=== PATIENT | male | born 1955 | race Caucasian/White ===

== ENCOUNTER 2019-12-12 01:28 | Emergency (ER) | payer OTHER, SELFPAY ==
[2019-12-12] VITALS (7 sets, daily range): BP systolic 154–203; BP diastolic 73–90; PULSE 69–75; RESP 15–18; O2SAT 93–96
--- NOTE | ~2019-12-12 | XR_ITS ---
EXAMINATION: XR chest 2V DATE: 12/12/2019 01:58 INDICATION: Midsternal chest pain. Shortness of breath. TECHNIQUE: PA and lateral views of the chest were obtained. COMPARISON: Chest radiograph dated 09/18/[address] abdomen and pelvis dated 07/26/2014 FINDINGS: Opacity medial right lower lung zone and at the left costophrenic angle corresponding to bilateral pe ricardial fat pads. No other airspace opacities, pulmonary edema, pleural effusion or pneumothorax. C ardiomegaly. There are bridging osteophytes at multiple levels in the spine, consistent with diffuse idiopathic skeletal hyperostosis (DISH). IMPRESSION: 1. Cardiomegaly. Reviewed, dictated and finalized at location A. IMPRESSION: 1. Cardiomegaly.
--- NOTE | 2019-12-12 01:36 | ECG_ITS ---
Measurements Intervals [place] Rate: 70 P: 33 MN: 166 QRS: -14 QRSD: 120 T: 48 QT: 414 QTc: 447 Interpretive Statements SINUS RHYTHM INTRAVENTRICULAR CONDUCTION DELAY DELAYED PRECORDIAL R/S TRANSITION BASELINE WANDER- V5 BORDERLINE ECG Electronically Signed On 12-12-2019 7:06:14 CDT by Leonard Phan D.O.
[2019-12-12 01:54] LABS: Basophils Absolute Auto 0.1 K/mm3 (0.0-0.1); Basophils Percent Auto 0.4 % (0.2-1.2); Eosinophils Absolute Auto 0.4 K/mm3 (0-0.3); Eosinophils Percent Auto 3.2 % (0-4.4); Hematocrit 43.8 % (42.0-52.0); Hemoglobin 14.7 g/dL (14.0-18.0); Immature Granulocyte Absolute 0.04 K/mm3 (0.00-0.031); Immature Granulocyte Percent A 0.3 % (0-0.5); Lymphocytes Absolute Auto 1.77 K/mm3 (0.9-3.2); Lymphocytes Percent Auto 14.4 % (18.3-44.2); Mean Corpuscular HGB Conc 33.6 g/dl (32-36); Mean Corpuscular Hemoglobin 28.8 pg (26-34); Mean Corpuscular Volume 85.7 fl (80-100); Mean Platelet Volume 9.6 fl (7.4-10.4); Monocytes Percent Auto 7.8 % (2.6-8.5); Neutrophils Percent Auto 73.9 % (45.5-73.1); Platelet Count Result 301 k/mm3 (150-375); Red Blood Count 5.11 M/mm3 (4.6-6.20); Red Cell Distribution Width 13.2 % (11.5-14.5); White Blood Count 12.3 K/mm3 (4.5-10.0)
--- NOTE | 2019-12-12 02:16 | ED.CHESTPAIN ---
HPI - Chest Pain General Chief Complaint: Chest Pain Stated Complaint: Chest pressure Time Seen by Provider: 12/12/19 02:06 History of Present Illness HPI narrative: Patient presents with his daughter for chest pain since midnight. He gave a 8 out of 10. He usually takes aspirin 325 every day. He was given the aspirin here. The chest pain has resolved. He has shortness of breath. He has not had any cough fever cold chills or sweats. He has not been sick. He has had a history of heart attack in the past. He has hypertension and type 2 diabetes. Surgeries include inguinal hernias, and sinus surgery. Does not smoke cigarettes, rarely drinks alcohol, does not do drug. MD complaint: chest pain Pertinent past history: coronary artery disease Onset (ago): hour(s) Timing of current episode: now resolved Prior episodes: Yes Onset: during rest Pain location: substernal and left chest Pain radiation: none Severity: severe Relieving factors: other (Aspirin) Associated symptoms: dyspnea Related Data Home Medications Medication Instructions Recorded Confirmed atorvastatin 80 mg PO DAILY 12/12/19 12/12/19 carvedilol 12.5 mg PO DAILY 12/12/19 12/12/19 lisinopril 10 mg PO DAILY 12/12/19 12/12/19 metformin 1,000 mg PO BID 12/12/19 12/12/19 Allergies Allergy/AdvReac Type Severity Reaction Status Date / Time No Known Allergies Allergy Verified 12/12/19 01:36 Review of Systems Review of Systems: Narrative: CONSTITUTIONAL: Denies fever, chills, or sweats. EYES: Denies visual changes, redness, or discharge. ENT: Denies rhinorrhea, congestion, sore throat, or otalgia. CARDIOVASCULAR: He had chest pain, but not palpitations, or edema. RESPIRATORY: Denies cough or dyspnea. GASTROINTESTINAL: Denies abdominal pain, nausea, vomiting, or diarrhea. GENITOURINARY: Denies dysuria or hematuria. SKIN: Denies rash or itching. MUSCULOSKELETAL: Denies back pain, joint pain, or myalgia. NEUROLOGIC: Denies headache, numbness, or weakness. All systems reviewed & are unremarkable except as noted in HPI and below PMFSH Past Medical History Medical History History of myocardial infarction Surgical History Surgical History History of inguinal hernia repair History of sinus surgery Social History Social History (Updated 12/12/19 @ 02:19 by Tyra Alvarez MD) Smoking status: Never smoker Alcohol intake: current Substance use: never Exam Narrative: Exam Narrative: GENERAL: Well-appearing, well-nourished, and in no acute distress. Morbid obesity. Laying with only his underpants on. HEAD: Normocephalic, atraumatic. EYES: PERRLA and EOMI. ENT: Nares clear, no rhinorrhea or epistaxis. Mucous membranes moist. NECK: Supple. CHEST: Clear to auscultation. No respiratory distress. HEART: Regular rate and rhythm. No murmur heard. Normal peripheral pulses. ABDOMEN: Soft, nontender, nondistended, normal active bowel sounds. EXTREMITIES: Normal range of motion. No edema. SKIN: Warm, dry, no rash. Large pedunculated mole on his back NEURO: No focal deficits. Alert and oriented x3. PSYCH: Normal mood and affect. Const: General: no acute distress and alert Orientation/consciousness: patient oriented x3 Course Reevaluation(s) Reevaluation #1: Stopped in to tell the patient that his blood pressure is better after the Lopressor and Lasix. He said it usually runs about 140. 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
[2019-12-12] MEDS: FUROSEMIDE INJ 40 MG/4 ML VIAL IV PUSH (02:48)
[2019-12-12 03:11] LABS: Lactic Acid Reflex 2.1 mmol/L (0.7-2.1)
[2019-12-12 03:11] LABS: Anion Gap 9 mmol/L (8-16); Blood Urea Nitrogen 14 mg/dL (9-20); Calcium 9.1 mg/dL (8.4-10.2); Carbon Dioxide 27 mmol/L (22-30); Chloride 103 mmol/L (98-107); Estimated Glomerular Filt Rate > 60; Glucose 221 mg/dL (75-110); Potassium 4.2 mmol/L (3.4-5.0); Sodium 139 mmol/L (137-145)
[2019-12-12 03:16] LABS: Prothrombin Time 12.4 Seconds (11.1-14.7)
[2019-12-12 03:17] LABS: Partial Thromboplastin Time 29.2 SECONDS (22.3-36.8)
[2019-12-12 03:22] LABS: Troponin I < 0.012 ng/mL (0.000-0.034)
[2019-12-12] MEDS: METOPROLOL TARTRATE INJ 5 MG/5 ML VIAL IV PUSH (03:30)
[2019-12-12 03:39] LABS: NT Pro B Type Natriuretic Pept 96 PG/ML (5-100)
[2019-12-12 05:57] LABS: Reflex Lactic Acid Yes or No Add Lactic
== END 2019-12-12 05:25 | disposition home or self-care (01) ==
PROVIDERS: Emergency Provider Emergency Medicine; PCP Family Medicine
DX: J18.9 Pneumonia, unspecified organism (principal); I16.9 Hypertensive crisis, unspecified; Z79.82 Long term (current) use of aspirin; I25.2 Old myocardial infarction; I25.10 Atherosclerotic heart disease of native coronary artery without angina pectoris; Z79.84 Long term (current) use of oral hypoglycemic drugs; I45.9 Conduction disorder, unspecified; R94.31 Abnormal electrocardiogram [ECG] [EKG]
CPT/HCPCS: 36415; 71046; 80048; 83605; 83880; 84484; 85025; 85610; 85730; 87040; 93005; 96365; 96367; 96375; 99284; J0456; J0696; J1940

== ENCOUNTER 2020-09-23 00:44 | Emergency (ER) | payer OTHER, SELFPAY ==
[2020-09-23 00:55] VITALS: BP 128/67; PULSE 73; RESP 16; TEMP 36.4; O2SAT 96
--- NOTE | 2020-09-23 02:03 | ED.GENADULT ---
HPI - General Adult General Chief complaint: Unspecified Stated complaint: testicle node Time Seen by Provider: 09/23/20 01:50 History of Present Illness HPI narrative: 65 yo male w/ h/o DM presents to the ED for a lump between his testicles. He first noticed it a few days ago and at that time it was the size of a pea. It is now the size of his testicles and very tender. He has no testicle pain, hematuria, dysuria, injury, fever. Related Data Home Medications Medication Instructions Recorded Confirmed atorvastatin 80 mg PO DAILY 12/12/19 12/12/19 carvedilol 12.5 mg PO DAILY 12/12/19 12/12/19 lisinopril 10 mg PO DAILY 12/12/19 12/12/19 metformin 1,000 mg PO BID 12/12/19 12/12/19 Allergies Allergy/AdvReac Type Severity Reaction Status Date / Time No Known Allergies Allergy Verified 12/12/19 01:36 Review of Systems Review of Systems: All systems reviewed & are unremarkable except as noted in HPI and below Constitutional: Constitutional: Denies fever(s) Cardiovascular: Cardiovascular: Denies chest pain Respiratory: Respiratory: Denies dyspnea Gastrointestinal: Gastrointestinal: Denies abdominal pain, Denies diarrhea, Denies nausea and Denies vomiting Genitourinary: Genitourinary: Denies hematuria, Denies dysuria, Denies flank pain, Denies penile discharge, Denies testicular pain and Denies urinary frequency Musculoskeletal: Musculoskeletal: Reports no additional musculoskeletal complaints Neurologic: Reports system reviewed and no additional complaints, except as documented [facility] Past Medical History Medical History (Updated 09/25/20 @ 19:56 by Grover Valadze MD) Diabetes mellitus History of myocardial infarction Surgical History Surgical History History of inguinal hernia repair History of sinus surgery Social History Social History (Updated 12/12/19 @ 02:19 by Tyra Alvarez MD) Smoking status: Never smoker Alcohol intake: current Substance use: never Exam Const: General: cooperative, comfortable and no acute distress Nutritional Appearance: obese Orientation/consciousness: patient oriented x3 HENMT: Head: normal to inspection Neck: Neck: normal visual inspection Resp: Effort & Inspection: normal respiratory effort Auscultation: clear to auscultation bilaterally Cardio: Rate: regular rate GI: Inspection: non-distended and obesity GI Palp: No Tenderness to palpation present (GI) : Penis: Yes normal penis and Yes circumcised Scrotum: erythematous localized and scrotal mass (fluctuant mass affixed to scroatal wall with small scab overlying) Testes: Testes normal Skin: General skin exam: normal color Neuro: General: patient oriented x3, gait normal and no focal motor deficits Extrem: General: normal to inspection Course Vital Signs Vital signs: Vital Signs Temperature 36.4 C 09/23/20 00:55 Pulse Rate 73 09/23/20 00:55 Respiratory Rate 16 09/23/20 00:55 Blood Pressure 128/67 09/23/20 00:55 Pulse Oximetry 96 09/23/20 00:55 Temperature 36.4 C 09/23/20 00:55 Pulse Rate 74 09/23/20 04:21 Respiratory Rate 20 09/23/20 04:21 Blood Pressure 124/63 09/23/20 04:21 Pulse Oximetry 97 09/23/20 04:21 Procedures Abscess I/D scrotum: Local Anesthetic: lidocaine 1% Amount of anesthesia used (mL): 4 Technique: incised with #11 blade Amount of fluid expressed (mL): 1 Irrigation: Yes Packing used?: iodoform I&D Results: Pus Medical Decision Making MDM Narrative Medical decision making narrative: No scrotal ultrasound avaialble at this time. exam consistent with scrotal wall abscess. On I&D scant pus obtained. may have already drained on its own given overlying scab. It did have a rather thick wall around it raising concern that it may have been something more chronic. I will have him follow up with urology for wound check and possibly fu
[2020-09-23] MEDS: CLINDAMYCIN HCL 150 MG CAP 300 MG PO (02:06)
[2020-09-23 04:21] VITALS: BP 124/63; PULSE 74; RESP 20; O2SAT 97
== END 2020-09-23 04:23 | disposition home or self-care (01) ==
PROVIDERS: Emergency Provider Emergency Medicine; PCP Family Medicine
DX: N49.2 Inflammatory disorders of scrotum (principal)
CPT/HCPCS: 55100; 99283; A9270

== ENCOUNTER 2022-10-17 09:42 | Observation (INO) | payer OTHER, SELFPAY ==
[2022-10-17] VITALS (12 sets, daily range): BP systolic 129–177; BP diastolic 57–85; PULSE 65–87; RESP 15–22; TEMP 36.4–37.1; O2SAT 94–98; BMI 40.8
--- NOTE | ~2022-10-17 | CT_ITS ---
EXAMINATION: CT brain wo con DATE: 10/17/2022 11:10 INDICATION: Headache TECHNIQUE: Computed tomography (CT) of the head was performed without intravenous contrast. The dose- length product was 756.67 mGy-cm. Automated exposure control and iterative reconstruction technique were employed. COMPARISON: None FINDINGS: Normal brain parenchymal volume for age. There are scattered mild periventricular and subco rtical white matter changes, most likely related to small vessel ischemic disease (microangiopathy). No ventriculomegaly or midline shift. Basilar cisterns are patent. Paranasal sinuses and mastoids are unremarkable. IMPRESSION: 1. No acute intracranial abnormality. Reviewed, dictated and finalized at location []
--- NOTE | ~2022-10-17 | CT_ITS ---
EXAMINATION: CT chest abdomen pelvis wo con DATE: 10/17/2022 11:17 CDT INDICATION: Abdominal pain and dyspnea TECHNIQUE: Computed tomography (CT) of the chest, abdomen, and pelvis was performed with 100 cc Omnip aque 350 intravenous contrast. The dose-length product was 1914.41 mGy-cm. Automated exposure control and iterative reconstruction technique were employed. COMPARISON: CT dated 07/26/2014 FINDINGS: CHEST CT: No significant pleural or pericardial effusion. Mild atherosclerosis of the aorta and coronary arteri es. Cardiomegaly. No thoracic lymphadenopathy. There is calcified granuloma near the right major fiss ure in the lower lobe. No endobronchial lesions. There are calcified granulomas in the right lung bas e. Shallow inspiration with crowding of the pulmonary vasculature. No endobronchial lesions. No pneum othorax. There are a few small pulmonary nodules which are not clearly calcified measuring 2 mm or le ss, likely benign. There is moderate spondylosis of the thoracic and lumbar spine. ABDOMEN/PELVIS CT: The liver, spleen, pancreas, adrenal glands and kidneys are unremarkable. Gallbladder is present. Mod erate colonic fecal loading. Mild atherosclerosis. No aneurysm. No lymphadenopathy. Nonobstructive jimi wel gas pattern. No free air or free fluid. Gallbladder is present. IMPRESSION: 1. No acute abnormality of the chest, abdomen or pelvis. Reviewed, dictated and finalized at location []
[2022-10-17 10:04] LABS: Glucose Point of Care 159 mg/dl (65-105)
--- NOTE | 2022-10-17 10:12 | ECG_ITS ---
Measurements Intervals [place] Rate: 80 P: 39 [place]: 170 QRS: -25 QRSD: 164 T: -12 QT: 424 QTc: 492 Interpretive Statements SINUS RHYTHM BORDERLINE LEFT AXIS DEVIATION [QRS AXIS < -20] RIGHT BUNDLE BRANCH BLOCK COMPARED TO ECG 12/12/2019 01:36:10 RIGHT BUNDLE BRANCH CONDUCTION IS NOW SEEN Electronically Signed On 10-17-2022 13:32:54 CDT by Geovany Jones M.D.
[2022-10-17 10:15] LABS: Basophils Percent Auto 0.3 % (0.2-1.2); Eosinophils Absolute Auto 0.2 K/mm3 (0-0.3); Eosinophils Percent Auto 1.2 % (0-4.4); Hemoglobin 15.2 g/dL (14.0-18.0); Immature Granulocyte Absolute 0.06 K/mm3 (0.00-0.031); Immature Granulocyte Percent A 0.4 % (0-0.5); Lymphocytes Absolute Auto 1.56 K/mm3 (0.9-3.2); Mean Corpuscular Hemoglobin 27.8 pg (26-34); Mean Corpuscular Volume 84.1 fl (80-100); Mean Platelet Volume 8.9 fl (7.4-10.4); Monocytes Absolute Auto 0.7 K/mm3 (0.1-0.6); Monocytes Percent Auto 4.9 % (2.6-8.5); Neutrophils Absolute Auto 11.6 K/mm3 (1.3-6.7); Neutrophils Percent Auto 82.2 % (45.5-73.1); Platelet Count Result 328 k/mm3 (150-375); Red Blood Count 5.47 M/mm3 (4.6-6.20); Red Cell Distribution Width 13.3 % (11.5-14.5); White Blood Count 14.2 K/mm3 (4.5-10.0)
--- NOTE | 2022-10-17 10:16 | ED.ABDPAIN ---
HPI - Abdominal Pain General Chief Complaint: Abdominal Pain <Katia Eagle PA-C - Last Filed: 10/17/22 18:23> Stated Complaint: HEADACHE,NAUSEA <Katia Eagle PA-C - Last Filed: 10/17/22 18:23> Time Seen by Provider: 10/17/22 09:57 <Katia Eagle PA-C - Last Filed: 10/17/22 18:23> History of Present Illness HPI narrative: 67 y/o M with a history of OR not requiring intervention, hypertension, CAD, type 2 diabetes reports for evaluation of sudden onset headache, abdominal pain and nausea x7 hours. Pt states the headache and abdominal pain woke him up in his sleep and was associated with cold sweats. Patient reports the headache was a 8-9/10 initially, but is now down to a 3/10 after he took Aleve ~3 hours ago. States his headache is behind his eyes. He describes the abdominal pain as tightness throughout his mid abdomen. Pt also reports shortness of breath that is mildly increased from his baseline, worse with laying flat. Denies chest pain, vision changes, focal numbness or weakness, difficulty talking or walking, vomiting or diarrhea, urinary complaints, dizziness or lightheadedness, syncope, cough or congestion, lower extremity edema, neck pain. Last BM 6 hours ago was normal. He sees Dr. Merrill with [facility] cardiology and Dr. Workman [facility] in [place], [place]. <YVES Gerard Last Filed: 10/17/22 18:23> Related Data Home Medications: Home Medications Medication Instructions Recorded Confirmed atorvastatin 80 mg tablet 80 mg PO HS 12/12/19 10/17/22 carvedilol 12.5 mg tablet 12.5 mg PO BID 12/12/19 10/17/22 lisinopril 10 mg tablet 10 mg PO HS 12/12/19 10/17/22 metformin 500 mg tablet 1,000 mg PO BID 12/12/19 10/17/22 dulaglutide 4.5 mg/0.5 mL 4.5 mg subcut WEEKLY 10/17/22 10/17/22 subcutaneous pen injector (Trulicity) <YVES Gerard Last Filed: 10/17/22 18:23> Allergies/Adverse Reactions: Allergies Allergy/AdvReac Type Severity Reaction Status Date / Time No Known Allergies Allergy Verified 10/17/22 09:56 <Katia Eagle PA-C - Last Filed: 10/17/22 18:23> Review of Systems Review of Systems: CONSTITUTIONAL: Denies fever, chills EYES: Denies visual changes, redness, or discharge. ENT: Denies rhinorrhea, congestion, sore throat, or otalgia. CARDIOVASCULAR: Denies chest pain, palpitations, or edema. RESPIRATORY: See HPI GASTROINTESTINAL: See HPI GENITOURINARY: Denies dysuria or hematuria. SKIN: Denies rash or itching. MUSCULOSKELETAL: Denies back pain, joint pain, or myalgia. NEUROLOGIC: See HPI PSYCHIATRIC: Denies anxiety or depression. <Katia Eagle PA-C - Last Filed: 10/17/22 18:23> [facility] Past Medical History Medical History: Medical History (Updated 10/17/22 @ 17:17 by Veronica Moses NP) Diabetes mellitus History of myocardial infarction Hyperlipidemia Hypertension MYKE on CPAP <Katia Eagle PA-C - Last Filed: 10/17/22 18:23> Surgical History Surgical History: Surgical History (Updated 10/17/22 @ 23:02 by Veronica Moses NP) H/O cardiac catheterization No intervention History of inguinal hernia repair History of sinus surgery Hx of total knee arthroplasty S/P tonsillectomy and adenoidectomy <Katia Eagle PA-C - Last Filed: 10/17/22 18:23> Family History Family History: Family History (Updated 10/17/22 @ 17:20 by Veronica Moses NP) Mother Heart disease Daughter Heart disease <Katia Eagle PA-C - Last Filed: 10/17/22 18:23> Social History Social History: Social History (Updated 10/17/22 @ 22:50 by Veronica Moses NP) Social History: He is and lives with his who is the durable power patent prosecution attorney. They have 3 children. He is retired from right to own. He is a lifelong nonsmoker. He does not use any alcohol marijuana or illicit drugs. Code status full code Smoking status: Never smoker Alcohol intake: current Drinks per
[2022-10-17] MEDS: ACETAMINOPHEN 500 MG TABLET 1000 MG PO (10:25)
[2022-10-17 10:26] LABS: Alanine Aminotransferase 39 U/L (6-50); Albumin Level 4.5 g/dL (3.5-5.1); Alkaline Phosphatase 69 U/L (38-126); Anion Gap 11 mmol/L (8-16); Aspartate Amino Transferase 38 U/L (17-59); Bilirubin,Total 0.8 mg/dL (0.2-1.3); Blood Urea Nitrogen 10 mg/dL (9-20); Calcium 9.4 mg/dL (8.4-10.2); Carbon Dioxide 28 mmol/L (22-30); Chloride 100 mmol/L (98-107); Estimated CRCL calculation 130 ml/min; Estimated Glomerular Filt Rate > 60; Glucose 162 mg/dL (65-110); Lipase 157 U/L (23-300); Potassium 4.5 mmol/L (3.4-5.0); Sodium 139 mmol/L (137-145)
[2022-10-17] MEDS: BELLADONNA ALK/PHENOB ELIX 10 ML, MAG HYDROX/ALUMINUM HYD/SIMETH 30 ML, LIDOCAINE HCL 2... PO (10:26)
[2022-10-17] MEDS: diphenhydrAMINE HCl INJ 50 MG/ML VIAL 25 MG IV PUSH (10:27)
[2022-10-17] MEDS: FAMOTIDINE 20 MG/2 ML VIAL IV PUSH (10:27)
[2022-10-17] MEDS: ONDANSETRON INJ 4 MG/2 ML VIAL IV PUSH (10:27)
[2022-10-17] MEDS: PROCHLORPERAZINE EDISYLATE 10 MG/2 ML VIAL IV PUSH (10:28)
[2022-10-17 10:44] LABS: Partial Thromboplastin Time 30.2 SECONDS (22.3-36.8); Prothrombin Time 13.4 Seconds (11.1-14.7)
[2022-10-17 10:52] LABS: NT Pro B Type Natriuretic Pept 410 pg/mL (19.9-100); Troponin I < 0.012 ng/mL (0.000-0.034)
[2022-10-17 11:44] LABS: Appearance Urine Clear (Clear); Bacteria Urine None Seen /hpf; Bilirubin Urine Negative (Negative); Blood Urine Negative (Negative); Color Urine Yellow (Yellow); Glucose Urine UA 2+ mg/dL (Negative); Ketones Urine Trace mg/dL (Negative); Leukocyte Esterase Ur Negative LEU/UL (Negative); Nitrate Urine Negative (Negative); Non Pathogenic Casts 0-2; Protein Urine 2+ mg/dL (Negative); RBC Urine 0-2 /hpf (0-2); Specific Grav Ur 1.013 (1.001-1.035); Squamous Epithelial Cell Urine None seen /hpf (Few); WBC Urine 0-5 /hpf; pH Urine 6.5 (5.0-9.0)
[2022-10-17 12:08] LABS: Add Urine Microscopic? YES
--- NOTE | 2022-10-17 14:10 | PC.NURSE ---
ambulated pt in hallway. o2 sat remained at 98% and pt reports no sob, cp or dizziness
[2022-10-17 14:13] LABS: D Dimer < 0.27 ug/mL (<0.48)
[2022-10-17 15:09] LABS: Troponin I < 0.012 ng/mL (0.000-0.034)
--- NOTE | 2022-10-17 17:15 | PM.IMHP ---
H&P: HPI History of Present Illness Date/Time: 10/17/22 17:15 Chief Complaint: Abdominal pain Narrative: This is a 67-year-old male patient who has history of hypertension and diabetes. The patient stated he had a sudden onset of a headache and abdominal pain and nausea for 7 hours. The patient stated that his headache and abdominal pain will came up from his sleep he also endorses cold sweats. The patient initially rated his headache 8-9 to 10 a leave prior to coming to the emergency room. The patient stated that he had headache behind his eyes. He had no change in his vision he had some shortness of breath. He denies any chest pain numbness or focal weakness. No edema. His white count was noted to be 14.2. Neutrophil percentage 82.2. His blood sugar was 162, 159 and 157. Troponins negative x2. The patient was given Zofran, Pepcid, GI cocktail, Compazine, Benadryl and Tylenol. Chest abdomen pelvis CT was read as no acute abnormality the chest abdomen or pelvis. Head CT was read as no acute intracranial abnormality. EKG was read asSINUS RHYTHM BORDERLINE LEFT AXIS DEVIATION? [QRS AXIS < -20] RIGHT BUNDLE BRANCH BLOCK COMPARED TO ECG 12/12/2019 01:36:10 RIGHT BUNDLE BRANCH CONDUCTION IS NOW SEEN Electronically Signed On 10-17-2022 13:32:54 CDT by Geovany Charles. The patient is being admitted to observation status on the date of service of 10/17/2022 Review of Systems Review of Systems: All systems reviewed & are unremarkable except as noted in HPI and below Constitutional: Constitutional: Reports as per HPI and Reports no additional constitutional complaints Eyes: Eyes: Reports as per HPI and Reports no additional eye complaints ENT: Reports system reviewed and no additional complaints, except as documented and Reports Normal hearing present Cardiovascular: Cardiovascular: Reports no additional cardiovascular complaints Respiratory: Respiratory: Reports no additional respiratory complaints and Reports no additional respiratory complaints Gastrointestinal: Gastrointestinal: Reports as per HPI and Reports no additional gastrointestinal complaints Musculoskeletal: Musculoskeletal: Reports no additional musculoskeletal complaints Integumentary/Breasts: Skin/Breast: Reports system reviewed and no additional complaints, except as docu and Reports as per HPI Neurologic: Reports system reviewed and no additional complaints, except as documented, Reports as per HPI and Reports Normal hearing present Psychiatric: Psychiatric: Reports no additional psychiatric complaints and Reports as per HPI Endocrine: Endocrine: Reports no additional endocrine complaints Hematologic/Lymphatic: Hematologic/Lymphatic: Reports no additional hematologic/lymphatic complaints Allergic/Immunologic: Allergic/Immunologic: Reports no additional allergic/immunologic complaints [facility] Past Medical History Medical History (Updated 10/17/22 @ 17:17 by Veronica Moses NP) Diabetes mellitus History of myocardial infarction Hyperlipidemia Hypertension MYKE on CPAP Surgical History Surgical History (Updated 10/17/22 @ 23:02 by Veronica Moses NP) H/O cardiac catheterization No intervention History of inguinal hernia repair History of sinus surgery Hx of total knee arthroplasty S/P tonsillectomy and adenoidectomy Family History Family History (Updated 10/17/22 @ 17:20 by Veronica Moses NP) Mother Heart disease Daughter Heart disease Social History Social History (Updated 10/17/22 @ 22:50 by Veronica Moses NP) Social History: He is and lives with his who is the durable power workers compensation attorney. They have 3 children. He is retired from right to [employer]. He is a lifelong nonsmoker. He does not use any alcohol marijuana or illicit drugs. Code status full code Smoking status: Never smoker Alcohol intake: current Drinks per week: 0 Substance use: never Substance use type: does not use Lack of Transportation
[2022-10-17 17:54] LABS: Glucose Point of Care 103 mg/dl (65-105)
[2022-10-17 20:16] LABS: Glucose Point of Care 157 mg/dl (65-105)
--- NOTE | 2022-10-17 21:19 | ADMGEN ---
This patient, Jonathan Suárez, was admitted to IMU Room 207-01 on 10/17/22. Patient/family oriented to hospital policies and general routines including ID bracelet, bed and alarms, visiting hours, pain management, procedures, bathroom and other care routines, personal items, smoking policy, room service/diet, and visiting hours. Information on how to activate the Rapid Response Team has been discussed. Patient/Family are encouraged to report perceived risks to care and to ask questions if they do not understand what they are told or what they should do.
[2022-10-17] MEDS: ATORVASTATIN 40 MG TABLET 80 MG PO (23:38)
[2022-10-17] MEDS: carvediloL 12.5 MG TABLET PO (23:38)
[2022-10-17] MEDS: lisinopriL 10 MG TABLET PO (23:38)
[2022-10-17] MEDS: SODIUM CHLORIDE 0.9% IV 1,000 ML 100 ML IV CONT (23:39)
--- NOTE | 2022-10-17 23:41 | PCRCNOTE ---
pt does not wear home CPAP, or want one while here
[2022-10-18] VITALS (11 sets, daily range): BP systolic 129–171; BP diastolic 57–69; PULSE 65–97; RESP 16–20; TEMP 36.5–36.7; O2SAT 95–96
--- NOTE | 2022-10-18 | ECHO_ITS ---
Patient Info Name: Jonathan Suárez Age: 67 years : 1955 Gender: Male Ht: 72 in Wt: 301 lbs BSA: 2.69 m2 HR: 78 bpm BP: 165 / 67 mmHg Heart Rhythm: Sinus Rhythm Technical Quality: Poor Exam Date: 10/18/2022 8:58 AM Exam Location: [facility] Pulmonary Exam Room: 207 Patient Status: Inpatient Admit Date: 10/17/2022 Staff Ordering Physician: Veronica Moses NP Senior Communications Engineer: Rosalind Roman RDCS Attending Provider: Geovany Ortega MD Referring Physician: uArelia PADGETT; Exam Type: CA echo dop color flow w con Study Info Indications - dyspnea on exertion Complete two-dimensional, color flow and Doppler transthoracic echocardiogram is performed with contrast to opacify the left ventricle and to improve the deliniation of the left ventricle endocardial borders. Contrast/Agitated Saline Contrast/Ag. Saline: Definity Amount: 2.00 ml Administered By: Rosalind Roman [facility] Existing IV Access: Yes IV Access Condition: patent with no signs of infiltration Reason for Poor Study: patient body habitus Summary 1. Left ventricular chamber dimension is moderately enlarged. 2. Left ventricular systolic function is normal, estimated at 60-65%. 3. There is mildly increased left ventricular wall thickness. 4. The left ventricular diastolic function is grade I diastolic dysfunction. 5. Left atrial chamber dimension is mildly enlarged. 6. There is mild aortic valve calcification. Left Ventricle Left ventricular chamber dimension is moderately enlarged. Left ventricular systolic function is normal, estimated at 60-65%. There is mildly increased left ventricular wall thickness. The left ventricular diastolic function is grade I diastolic dysfunction. Right Ventricle Right ventricular chamber dimension is normal. Right ventricular systolic function is normal. Left Atria Left atrial chamber dimension is mildly enlarged. Right Atria Right atrial chamber dimension is normal. Atrial Septum Intact interatrial septum visualized by color flow imaging. Aortic Valve The aortic valve is trileaflet. There is no aortic valve stenosis. There is trace aortic valve regurgitation. There is mild aortic valve calcification. Pulmonic Valve The pulmonic valve is normal. There is no pulmonic valve stenosis. There is trace pulmonic regurgitation. Mitral Valve The mitral valve has normal leaflets. There is no mitral valve stenosis. There is trace mitral valve regurgitation. Tricuspid Valve The tricuspid valve leaflets are normal. There is no significant tricuspid valve stenosis. There is trace tricuspid valve regurgitation. Pericardium/Pleural The pericardium appears normal. There is trivial pericardial effusion. Inferior Vena Cava Normal inferior vena cava with <50% collapse upon inspiration consistent with elevated right atrial pressure, 10 mmHg. Aorta The aortic root size at the sinus of Valsalva is normal. Left Ventricular Outflow Tract Name Value Normal LVOT 2D LVOT Diameter 2.12 cm LVOT Doppler LVOT Peak Gradient 10 mmHg LVOT Mean Gradient 6 mmHg LVOT VTI
[2022-10-18 00:10] LABS: Troponin I < 0.012 ng/mL (0.000-0.034)
[2022-10-18 04:07] LABS: Basophils Percent Auto 0.3 % (0.2-1.2); Eosinophils Absolute Auto 0.2 K/mm3 (0-0.3); Eosinophils Percent Auto 1.2 % (0-4.4); Hemoglobin 14.2 g/dL (14.0-18.0); Immature Granulocyte Absolute 0.05 K/mm3 (0.00-0.031); Immature Granulocyte Percent A 0.4 % (0-0.5); Lymphocytes Absolute Auto 1.49 K/mm3 (0.9-3.2); Lymphocytes Percent Auto 11.3 % (18.3-44.2); Mean Corpuscular HGB Conc 32.3 g/dl (32-36); Mean Corpuscular Hemoglobin 27.6 pg (26-34); Mean Corpuscular Volume 85.6 fl (80-100); Mean Platelet Volume 9.2 fl (7.4-10.4); Monocytes Absolute Auto 0.9 K/mm3 (0.1-0.6); Monocytes Percent Auto 6.9 % (2.6-8.5); Neutrophils Absolute Auto 10.5 K/mm3 (1.3-6.7); Neutrophils Percent Auto 79.9 % (45.5-73.1); Platelet Count Result 302 k/mm3 (150-375); Red Blood Count 5.14 M/mm3 (4.6-6.20); Red Cell Distribution Width 13.3 % (11.5-14.5); White Blood Count 13.2 K/mm3 (4.5-10.0)
[2022-10-18 04:23] LABS: Lactic Acid Reflex 1.3 mmol/L (0.7-2.0)
[2022-10-18 04:24] LABS: Alanine Aminotransferase 36 U/L (6-50); Albumin Level 4.4 g/dL (3.5-5.1); Alkaline Phosphatase 64 U/L (38-126); Anion Gap 5 mmol/L (8-16); Aspartate Amino Transferase 33 U/L (17-59); Blood Urea Nitrogen 12 mg/dL (9-20); Calcium 8.9 mg/dL (8.4-10.2); Carbon Dioxide 33 mmol/L (22-30); Chloride 102 mmol/L (98-107); Estimated CRCL calculation 147 ml/min; Estimated Glomerular Filt Rate > 60; Glucose 132 mg/dL (65-110); Magnesium 2.2 mg/dL (1.6-2.3); Sodium 140 mmol/L (137-145)
[2022-10-18 06:49] LABS: Hemoglobin A1C 6.5 % (<5.7)
[2022-10-18 07:51] LABS: Glucose Point of Care 175 mg/dl (65-105)
[2022-10-18] MEDS: carvediloL 12.5 MG TABLET PO (08:15)
[2022-10-18] MEDS: ENOXAPARIN 40 MG/0.4 ML SYRINGE SUB-Q (08:15)
[2022-10-18] MEDS: PERFLUTREN LIPID MICROSPHERES 1.5 ML VIAL DILUTED TO 10 ML TOTAL VOLUME IV PUSH (09:30)
[2022-10-18] MEDS: SODIUM CHLORIDE 0.9% IV 1,000 ML 100 ML IV CONT (09:39)
[2022-10-18 11:36] LABS: Glucose Point of Care 146 mg/dl (65-105)
--- NOTE | 2022-10-18 14:26 | PM.DS ---
DS: Admitting Diagnosis Discharge Date 10/28/22 Admitting Diagnosis abdominal pain DS: Discharge Diagnosis Discharge Diagnosis (1) Orthopnea: Code(s): R06.01 - Orthopnea Status: Acute Assessment and Plan: Echo was ordered Chest/Abdomen/Pelvis CT 10/17/22 11:17 IMPRESSION: 1. No acute abnormality of the chest, abdomen or pelvis. He is on room air. (2) Hyperlipidemia: Code(s): E78.5 - Hyperlipidemia, unspecified Status: Acute Assessment and Plan: Continue with Lipitor (3) MYKE on CPAP: Code(s): G47.33 - Obstructive sleep apnea (adult) (pediatric) Status: Acute Assessment and Plan: continue with home settings for c pap (4) Hypertension: Code(s): I10 - Essential (primary) hypertension Status: Acute Assessment and Plan: continue with lisinopril DS: Summary Hospital Course Hospital Course: 67-year-old male patient who has history of hypertension and diabetes.? The patient stated he had a sudden onset of a headache and abdominal pain and nausea for 7 hours. All symptoms resolved with IVF and rest. PO intake adequate without nausea. Echo wnl, no cardiac etiology noted. Possibly underlying viral etiology, improving with supportive care. Recommend gas-x, PPI x 1 week and contact GI for screening colonoscopy. See above and med rec for details. Time Spent with Patient Time attestation: Total time spent providing and/or coordinating discharge services: Exam Narrative: General: No acute distress, alert and oriented per baseline HEENT: Atraumatic, normocephalic, mucous membranes moist CV: Regular rate and rhythm, S1, S2 Lungs: Clear to auscultation bilaterally, no rales or crackles noted, no wheezes, good air entry Abdomen: Soft, nontender, nondistended Extremities: Normal to inspection Skin: No rashes noted, no lesions or wounds seen Psych: Euthymic, normal affect DS: Data Data Completed and Pending Completed studies during hospitalization: ITS Impressions Head CT 10/17/22 11:13 IMPRESSION: 1. No acute intracranial abnormality. Chest/Abdomen/Pelvis CT 10/17/22 11:17 IMPRESSION: 1. No acute abnormality of the chest, abdomen or pelvis. Echo with EF 60-65%, grad I diastolic dysfunction, no significant valvular disease noted Labs on day of discharge: Labs from last 24 hours 10/18/22 10/18/22 10/18/22 11:22 07:31 03:41 WBC 13.2 H RBC 5.14 Hgb 14.2 Hct 44.0 MCV 85.6 MCH 27.6 MCHC 32.3 RDW 13.3 Plt Count 302 MPV 9.2 Immature Gran % (Auto) 0.4 Neut % (Auto) 79.9 H Lymph % (Auto) 11.3 L [place] % (Auto) 6.9 Eos % (Auto) 1.2 Baso % (Auto) 0.3 Lymph # (Auto) 1.49 [place] # (Auto) 0.9 H Eos # (Auto) 0.2 Baso # (Auto) 0.0 Abs Immat Gran (auto) 0.05 H Absolute Neuts (auto) 10.5 H Absolute Nucleated RBC 0.0 Nucleated RBC % 0.0 Sodium 140 Potassium 4.0 Chloride 102 Carbon Dioxide 33 H Anion Gap 5 L BUN 12 Creatinine 0.60 L Estim Creat Clear Calc 147 Estimated GFR > 60 Glucose 132 H POC Capillary Glucose 146 H 175 H Hemoglobin A1c 6.5 H Lactic Acid 1.3 Calcium 8.9 Magnesium 2.2 Total Bilirubin 1.0 AST 33 ALT 36 Alkaline Phosphatase 64 Troponin I Total Protein 7.0 Albumin 4.4 TSH (Reflex) 2.940 10/17/22 10/17/22 10/17/22 23:30 19:15 17:51 WBC RBC Hgb Hct MCV MCH MCHC RDW Plt Count MPV Immature Gran % (Auto) Neut % (Auto) Lymph % (Auto) [place] % (Auto) Eos % (Auto) Baso % (Auto) Lymph # (Auto) [place] # (Auto) Eos # (Auto) Baso # (Auto) Abs Immat Gran (auto) Absolute Neuts (auto) Absolute Nucleated RBC Nucleated RBC % Sodium Potassium Chloride Carbon Dioxide Anion Gap BUN Creatinine Estim Creat Clear Calc Estimated GFR Glucose POC
== END 2022-10-18 15:26 | disposition home or self-care (01) ==
LOC: ANHED 14:51 → ANHIMU 10-18 14:26
PROVIDERS: Emergency Medicine; Nurse Practitioner; Admitting Provider Chiropractor; Emergency Provider Physician Assistant; Visit Provider Student in an Organized Health Care Education/Training Program
DX: R06.01 Orthopnea (principal); E78.5 Hyperlipidemia, unspecified; G47.33 Obstructive sleep apnea (adult) (pediatric); Z99.89 Dependence on other enabling machines and devices; I11.9 Hypertensive heart disease without heart failure; G44.201 Tension-type headache, unspecified, intractable; R10.84 Generalized abdominal pain; I45.10 Unspecified right bundle-branch block; I25.2 Old myocardial infarction; I35.8 Other nonrheumatic aortic valve disorders; I25.10 Atherosclerotic heart disease of native coronary artery without angina pectoris; E11.9 Type 2 diabetes mellitus without complications; R61 Generalized hyperhidrosis; Z82.49 Family history of ischemic heart disease and other diseases of the circulatory system; R79.1 Abnormal coagulation profile; Z79.84 Long term (current) use of oral hypoglycemic drugs; Z79.85 Long-term (current) use of injectable non-insulin antidiabetic drugs; Z79.899 Other long term (current) drug therapy
CPT/HCPCS: 36415; 70450; 71250; 74176; 80053; 81001; 82948; 83036; 83605; 83690; 83735; 83880; 84443; 84484; 85025; 85380; 85610; 85730; 93005; 96361; 96372; 96374; 96375; 99285; A9270; C8929; G0378; J0780; J1200; J1650; J2405; J7030; Q9957

== ENCOUNTER 2022-10-23 19:06 | Emergency (ER) | payer OTHER, SELFPAY ==
--- NOTE | 2022-10-23 19:11 | ED.EAR ---
HPI - Ear Problem General Chief complaint: Ear Stated complaint: Can't hear out of left ear; pressure Time Seen by Provider: 10/23/22 19:11 Source: patient Mode of arrival: ambulatory Limitations: no limitations History of Present Illness HPI Narrative: Mr. Suárez is a 67-year-old male patient presenting to the clinic today with complaints of difficulty hearing out of the left ear and pressure x1-2 days. He reports no fever or chills. Tried to get into his doctor's office today and they were unable to see him. Related Data Home Medications Medication Instructions Recorded Confirmed atorvastatin 80 mg tablet 80 mg PO HS 12/12/19 10/23/22 carvedilol 12.5 mg tablet 12.5 mg PO BID 12/12/19 10/23/22 lisinopril 10 mg tablet 10 mg PO HS 12/12/19 10/23/22 metformin 500 mg tablet 1,000 mg PO BID 12/12/19 10/23/22 dulaglutide 4.5 mg/0.5 mL 4.5 mg subcut WEEKLY 10/17/22 10/23/22 [facility] Allergies Allergy/AdvReac Type Severity Reaction Status Date / Time No Known Allergies Allergy Verified 10/23/22 19:16 Review of Systems Review of Systems: Pertinent positives per HPI. Patient denies any fever, chills, rash, headache, visual changes, dizziness, cough, runny nose, sore throat, shortness of breath, chest pain, palpitations, nausea, vomiting, diarrhea, constipation, abdominal pain, or any urinary issues. [facility] Past Medical History Medical History Diabetes mellitus History of myocardial infarction Hyperlipidemia Hypertension MYKE on CPAP Surgical History Surgical History H/O cardiac catheterization No intervention History of inguinal hernia repair History of sinus surgery Hx of total knee arthroplasty S/P tonsillectomy and adenoidectomy Family History Family History Mother Heart disease Daughter Heart disease Social History Social History Social History: He is and lives with his who is the durable power hammer repairer. They have 3 children. He is retired from right to own. He is a lifelong nonsmoker. He does not use any alcohol marijuana or illicit drugs. Code status full code Smoking status: Never smoker Alcohol intake: current Drinks per week: 0 Substance use: never Substance use type: does not use Lack of Transportation: No Lack of Food: Never True Current Housing: I Have Housing Concerned About Future Housing: No Difficulty Paying Gas/Electric Bills: No Difficulty Paying for Meds: No Currently Unemployed: No Education: High School Diploma/GED Difficulty w/ Childcare or Family Care: No Spiritual care concerns: No Comments At the time of my signature, I reviewed and agree with the nursing past medical, surgical, social, and family history. There is no relevant family history pertinent to the patient complaint. Exam Narrative: General: Well-developed, well nourished, in no apparent distress Head: Normocephalic, atraumatic Eyes: Pupils equally round and reactive to light bilaterally, EOM intact, sclera and conjunctive clear, no discharge, lids normal Ears: TMs intact, opaque, with congestion to bilateral ears with redness and bulging to the left ear TM, ear canals clear, no drainage, grossly hearing normal. Nose: Nares patent, clear discharge, no inflammation, no sinus tenderness. Mouth: Oropharynx without lesions or masses, good dentition, MMM. Neck: Supple, trachea midline, no enlargement of anterior or posterior cervical nodes, no thyroid masses or goiter palpable. Cardio: Regular rate and rhythm, s1 and s2 normal, no murmur appreciated. Resp: Clear to auscultation bilaterally anteriorly and posteriorly, no rhonchi, rales, wheezing or rubs Course Course Em
[2022-10-23 19:15] VITALS: BP 156/67; PULSE 71; RESP 16; TEMP 36.2; O2SAT 98
== END 2022-10-23 19:30 | disposition home or self-care (01) ==
PROVIDERS: Emergency Provider Nurse Practitioner Family
DX: H66.002 Acute suppurative otitis media without spontaneous rupture of ear drum, left ear (principal); E11.9 Type 2 diabetes mellitus without complications; E78.5 Hyperlipidemia, unspecified; I10 Essential (primary) hypertension; G47.33 Obstructive sleep apnea (adult) (pediatric); I25.2 Old myocardial infarction
CPT/HCPCS: 99213; G0463

== ENCOUNTER 2023-06-13 19:21 | Observation (INO) | payer OTHER, SELFPAY ==
--- NOTE | ~2023-06-13 | CT_ITS ---
Non-contrast Head CT History: Altered mental status COMPARISON: 10/17/2022 Technique: Axial non-contrast imaging of the brain was performed. Dose reduction technique was used on this scan by utilizing automated exposure control and iterative reconstruction technique. The dose -length product (DLP) was 832.33 mGy-cm. Findings: There is no evidence of intracranial hemorrhage, mass lesion, or acute infarct. Brain par enchyma appears normal. The ventricles and subarachnoid spaces are normal in size. The calvarium ap pears normal. The visualized paranasal sinuses and mastoid air cells are clear. Impression: No significant abnormality seen. Reviewed, dictated and finalized at location . [employer] Impression: No significant abnormality seen.
--- NOTE | ~2023-06-13 | CT_ITS ---
CT of the Abdomen and Pelvis: Indication: Altered mental status Technique: 2.5 mm axial scans were obtained through the abdomen and pelvis following intravenous adm inistration of 100 cc of Omnipaque 350. Dose reduction technique was used on this scan by utilizing a utomated exposure control and iterative reconstruction technique. The dose-length product (DLP) was 1 683.88 mGy-cm. COMPARISON: 10/17/2022 Findings: Scans through the lung bases are unremarkable. The liver, spleen, pancreas, gallbladder, adrenals and kidneys are within normal limits. There are at herosclerotic calcifications of the aorta. No lymphadenopathy. No bowel obstruction or bowel wall thickening. There is no evidence to suggest acute appendicitis. Images through the pelvis were performed. Urinary bladder unremarkable. Prostate gland and seminal ve sicles are unremarkable. Impression: No significant abnormalities seen. Reviewed, dictated and finalized at [facility]. [employer] Impression: No significant abnormalities seen.
--- NOTE | ~2023-06-13 | XR_ITS ---
Portable chest x-ray Comparison: 12/12/2019 Clinical History: Altered mental status Findings: Probable mild synovitis change. No consolidation or pleural effusion evident otherwise. C ardiomediastinal silhouette is stable. Bones and soft tissues are unremarkable. Impression: Probable mild central congestive change. Reviewed, dictated and finalized at location . [employer] Impression: Probable mild central congestive change.
[2023-06-13 19:26] VITALS: BP 145/66; PULSE 84; RESP 20; TEMP 36.6; O2SAT 98
--- NOTE | 2023-06-13 19:32 | ECG_ITS ---
Measurements Intervals [place] Rate: 84 P: 44 NH: 147 QRS: 5 QRSD: 172 T: -29 QT: 424 QTc: 501 Interpretive Statements SINUS RHYTHM RIGHT BUNDLE BRANCH BLOCK NONSPECIFIC ST AND T-WAVE ABNORMALITIES. ABNORMAL ECG COMPARED TO ECG 10/17/2022 10:27:38 INTRAVENTRICULAR CONDUCTION DELAY NOW PRESENT Electronically Signed On 06-14-2023 8:18:08 CURRICULUM AND ASSESSMENT COORDINATOR by Juventino Vargas M.D.
--- NOTE | 2023-06-13 20:05 | PC.NURSE ---
Family states pt had pain pump placed on Thursday 06/08
[2023-06-13 20:07] VITALS: BP 148/69; PULSE 81; RESP 18; O2SAT 93
[2023-06-13 20:09] LABS: Basophils Percent Auto 0.3 % (0.2-1.2); Eosinophils Percent Auto 0.3 % (0-4.4); Hematocrit 47.9 % (42.0-52.0); Hemoglobin 15.5 g/dL (14.0-18.0); Immature Granulocyte Absolute 0.02 K/mm3 (0.00-0.031); Immature Granulocyte Percent A 0.3 % (0-0.5); Lymphocytes Absolute Auto 0.64 K/mm3 (0.9-3.2); Lymphocytes Percent Auto 8.9 % (18.3-44.2); Mean Corpuscular HGB Conc 32.4 g/dl (32-36); Mean Corpuscular Hemoglobin 27.1 pg (26-34); Mean Corpuscular Volume 83.6 fl (80-100); Mean Platelet Volume 10.7 fl (7.4-10.4); Monocytes Absolute Auto 0.9 K/mm3 (0.1-0.6); Monocytes Percent Auto 12.4 % (2.6-8.5); Neutrophils Absolute Auto 5.6 K/mm3 (1.3-6.7); Neutrophils Percent Auto 77.8 % (45.5-73.1); Platelet Count Result 329 k/mm3 (150-375); Red Blood Count 5.73 M/mm3 (4.6-6.20); Red Cell Distribution Width 13.8 % (11.5-14.5); White Blood Count 7.2 K/mm3 (4.5-10.0)
[2023-06-13 20:20] LABS: Lactic Acid Reflex 1.8 mmol/L (0.7-2.0); Prothrombin Time 13.2 Seconds (11.1-14.7)
[2023-06-13 20:21] LABS: Alanine Aminotransferase 49 U/L (6-50); Albumin Level 4.7 g/dL (3.5-5.1); Alkaline Phosphatase 71 U/L (38-126); Anion Gap 10 mmol/L (8-16); Aspartate Amino Transferase 66 U/L (17-59); Bilirubin,Total 0.8 mg/dL (0.2-1.3); Blood Urea Nitrogen 19 mg/dL (9-20); Calcium 9.5 mg/dL (8.4-10.2); Carbon Dioxide 26 mmol/L (22-30); Chloride 101 mmol/L (98-107); Estimated CRCL calculation 126 ml/min; Estimated Glomerular Filt Rate > 60; Glucose 179 mg/dL (65-110); Partial Thromboplastin Time 30.8 SECONDS (22.3-36.8); Potassium 3.7 mmol/L (3.4-5.0); Sodium 137 mmol/L (137-145)
--- NOTE | 2023-06-13 21:17 | PC.NURSE ---
Pt in imaging at this time.
[2023-06-13 21:32] VITALS: BP 127/47; PULSE 78; RESP 16; O2SAT 93
[2023-06-13 21:35] LABS: Ethanol < 10 mg/dL (<10); Magnesium 2.1 mg/dL (1.6-2.3)
[2023-06-13 21:42] LABS: Influenza A QL RT-PCR Positive (Negative); Influenza B QL RT-PCR Negative (Negative); RSV RNA, RT-PCR Negative (Negative); SARS-CoV-2 RNA PCR Negative (Negative)
[2023-06-13 21:45] LABS: Troponin I 0.014 ng/mL (0.000-0.034)
[2023-06-13 22:03] LABS: Appearance Urine Cloudy (Clear); Bacteria Urine None Seen /hpf; Bilirubin Urine Negative (Negative); Blood Urine 1+ (Negative); Color Urine Dark Yellow (Yellow); Glucose Urine UA 2+ mg/dL (Negative); Ketones Urine Trace mg/dL (Negative); Leukocyte Esterase Ur Negative LEU/UL (Negative); Mucus Urine Present /lpf; Need Manual Microscopic Reviewed; Nitrate Urine Negative (Negative); Non Pathogenic Casts >20; Protein Urine 4+ mg/dL (Negative); RBC Urine 0-2 /hpf (0-2); Squamous Epithelial Cell Urine Few /hpf (Few); WBC Urine 0-5 /hpf; pH Urine 5.5 (5.0-9.0)
[2023-06-13 22:04] LABS: Add Urine Microscopic? YES; Specific Grav Ur 1.045 (1.001-1.035)
[2023-06-13 22:17] LABS: Barbiturate Screen Urine Negative (Negative); Benzodiazepines Screen Urine Negative (Negative)
[2023-06-13 22:20] LABS: Amphetamine Screen Urine Negative (Negative); Cannabinoid Screen Urine Negative (Negative); Cocaine Screen Urine Negative (Negative); Methadone Screen Urine Negative (Negative); Opiate Screen Urine Negative (Negative); Phencyclidine Screen Urine Negative (Negative)
--- NOTE | 2023-06-13 22:27 | ED.GENADULT ---
HPI - General Adult General Chief complaint: Altered Mental Status Stated complaint: Confused since yesterday Time Seen by Provider: 06/13/23 20:12 History of Present Illness HPI narrative: 68-year-old male presenting chief complaint of altered mental status. Patient's noticed that he was confused yesterday afternoon it is been getting worse since then. Patient can tell me his name but believes that is 1993. He is able to follow commands. He is denying any physical complaints at this time. patient had a spinal pains stimulator inserted 5 days ago. No pain at the insertion site redness or swelling. Related Data Home Medications Medication Instructions Recorded Confirmed atorvastatin 80 mg tablet 80 mg PO HS 12/12/19 10/23/22 carvedilol 12.5 mg tablet 12.5 mg PO BID 12/12/19 10/23/22 lisinopril 10 mg tablet 10 mg PO HS 12/12/19 10/23/22 metformin 500 mg tablet 1,000 mg PO BID 12/12/19 10/23/22 dulaglutide 4.5 mg/0.5 mL 4.5 mg subcut WEEKLY 10/17/22 10/23/22 subcutaneous pen injector ([facility]) Allergies Allergy/AdvReac Type Severity Reaction Status Date / Time No Known Allergies Allergy Verified 06/13/23 19:30 [facility] Past Medical History Medical History Diabetes mellitus History of myocardial infarction Hyperlipidemia Hypertension MYKE on CPAP Surgical History Surgical History H/O cardiac catheterization No intervention History of inguinal hernia repair History of sinus surgery Hx of total knee arthroplasty S/P tonsillectomy and adenoidectomy Family History Family History Mother Heart disease Daughter Heart disease Social History Social History Social History: He is and lives with his who is the durable power patent attorney. They have 3 children. He is retired from right to own. He is a lifelong nonsmoker. He does not use any alcohol marijuana or illicit drugs. Code status full code Smoking status: Never smoker Alcohol intake: current Drinks per week: 0 Substance use: never Substance use type: does not use Lack of Transportation: No Lack of Food: Never True Current Housing: I Have Housing Concerned About Future Housing: No Difficulty Paying Gas/Electric Bills: No Difficulty Paying for Meds: No Currently Unemployed: No Education: High School Diploma/GED Difficulty w/ Childcare or Family Care: No Spiritual care concerns: No Exam Narrative: APPEARANCE: No apparent distress. AOx1 Head: atraumatic. EYES: EOMI, NOSE: Atraumatic NECK /back: No neck pain/stiffness. Pain stimuli breast region without any overlying skin changes tenderness or evidence of infection. RESPIRATORY: CTAB, no increased work of breathing CARDIOVASCULAR: RRR, no peripheral edema ABDOMINAL: Non-distended, soft nontender, no guarding rebound MUSCULOSKELETAl: No obvious deformities NEURO: Alert. Cranial nerves 2-12 grossly intact. Sensation light touch, motor function cerebellar function intact for 4 extremities. Gait exam was normal. SKIN:: Warm, dry. Normal color PSYCHIATRIC: Normal affect Course Vital Signs Vital signs: Vital Signs Temperature 97.9 F 06/13/23 19:26 Pulse Rate 84 06/13/23 19:26 Respiratory Rate 20 06/13/23 19:26 Blood Pressure 145/66 H 06/13/23 19:26 Pulse Oximetry 98 06/13/23 19:26 Oxygen Delivery Room Air 06/13/23 19:26 Temperature 97.9 F 06/13/23 19:26 Pulse Rate 77 06/13/23 22:58 Respiratory Rate 18 06/13/23 22:58 Blood Pressure 155/76 H 06/13/23 22:58 Pulse Oximetry 95 06/13/23 22:58 Oxygen Delivery Room Air 06/13/23 19:26 Medical Decision Making MDM Narrative Medical decision making narrative: -Course: 68-year-old male presenting wi
[2023-06-13 22:58] VITALS: BP 155/76; PULSE 77; RESP 18; O2SAT 95
[2023-06-13] MEDS: OSELTAMIVIR PHOSPHATE 75 MG CAPSULE PO (23:08)
[2023-06-14] VITALS (7 sets, daily range): BP systolic 125–160; BP diastolic 61–87; PULSE 68–82; RESP 19–22; TEMP 36.8–37.7; O2SAT 90–94; BMI 40.5
--- NOTE | 2023-06-14 | PC.NURSE ---
This patient, Jonathan Suárez, was admitted to [facility] Surg Room 333-01. Patient/family oriented to hospital policies and general routines including ID bracelet, bed and alarms, visiting hours, pain management, procedures, bathroom and other care routines, personal items, smoking policy, room service/diet, and visiting hours. Information on how to activate the Rapid Response Team has been discussed. Patient/Family are encouraged to report perceived risks to care and to ask questions if they do not understand what they are told or what they should do.
--- NOTE | 2023-06-14 00:16 | PM.IMHP ---
H&P: HPI History of Present Illness Date/Time: 06/14/23 00:16 Chief Complaint: generalized weakness Narrative: This is a 68-year-old male with past medical history significant for chronic back pain, patient is status post pain pump implantation, type diabetes mellitus, hypertension, obesity, benign prostatic hyperplasia. Patient presents to the emergency room due to generalized weakness, lethargy body aches and pains chills poor appetite poor per orally intake. Patient was found to be positive for influenza. Patient has been placed in observation for further evaluation management and treatment. Portable chest x-ray Comparison: 12/12/2019 Clinical History: Altered mental status Findings:? Probable mild synovitis change. No consolidation or pleural effusion evident otherwise.? Cardiomediastinal silhouette is stable. Bones and soft tissues are unremarkable. ? Impression: ? Probable mild central congestive change. Non-contrast Head CT History: Altered mental status COMPARISON: 10/17/2022 Technique:? Axial non-contrast imaging of the brain was performed. Dose reduction technique was used on this scan by utilizing automated exposure control and iterative reconstruction technique. The dose-length product (DLP) was 832.33 mGy-cm. Findings:? There is no evidence of intracranial hemorrhage, mass lesion, or acute infarct.? Brain parenchyma appears normal.? The ventricles and subarachnoid spaces are normal in size.? The calvarium appears normal.? The visualized paranasal sinuses and mastoid air cells are clear. Impression: No significant abnormality seen. CT of the Abdomen and Pelvis: Indication: Altered mental status Technique:? 2.5 mm axial scans were obtained through the abdomen and pelvis following intravenous administration of 100 cc of Omnipaque 350. Dose reduction technique was used on this scan by utilizing automated exposure control and iterative reconstruction technique. The dose-length product (DLP) was 1683.88 mGy-cm. COMPARISON: 10/17/2022 Findings:? Scans through the lung bases are unremarkable. The liver, spleen, pancreas, gallbladder, adrenals and kidneys are within normal limits. There are atherosclerotic calcifications of the aorta.? No lymphadenopathy. No bowel obstruction or bowel wall thickening. There is no evidence to suggest acute appendicitis. Images through the pelvis were performed. Urinary bladder unremarkable. Prostate gland and seminal vesicles are unremarkable. Impression: No significant abnormalities seen. Review of Systems Review of Systems: generalized weakness, body aches and pains, poor appetite, poor per orally intake Constitutional: Constitutional: Reports body ache(s), Reports chills, Reports fatigue, Reports malaise, Reports poor appetite and Reports weakness Eyes: Eyes: Denies change in vision ENT: Denies dysphagia and Denies odynophagia Cardiovascular: Cardiovascular: Denies chest pain, Denies radiating jaw, neck or arm pain and Denies palpitations Respiratory: Respiratory: Denies chest congestion, Denies cough, Denies excessive phlegm production and Denies dyspnea Gastrointestinal: Gastrointestinal: Denies abdominal pain, Denies nausea and Denies vomiting Genitourinary: Genitourinary: Denies dysuria Musculoskeletal: Musculoskeletal: Reports back pain, Reports myalgias and Reports muscle weakness Integumentary/Breasts: Skin/Breast: Denies rash Neurologic: Denies focal weakness and Denies Sensory deficit (Neuro) Psychiatric: Psychiatric: Reports no additional psychiatric complaints and Reports as per HPI Endocrine: Endocrine: Denies cold intolerance, Denies fatigue, Denies flushing, Denies heat intolerance, Denies polyphagia, Denies polydipsia and Denies palpitations Hematologic/Lymphatic: Hematologic/Lymphatic: Reports no additional hematologic/lymphatic complaints and Reports as per HPI Allergic/Immunologic: Allergic/Immunologic: Reports no
[2023-06-14 00:22] LABS: Troponin I 0.016 ng/mL (0.000-0.034)
[2023-06-14] MEDS: carvediloL 12.5 MG TABLET PO ×3 (00:31→20:48)
[2023-06-14] MEDS: lisinopriL 10 MG TABLET PO ×2 (00:32→20:48)
[2023-06-14] MEDS: OSELTAMIVIR PHOSPHATE 75 MG CAPSULE PO ×2 (08:40→20:48)
[2023-06-14] MEDS: TAMSULOSIN HCL 0.4 MG CAPSULE PO (08:41)
--- NOTE | 2023-06-14 16:43 | PM.IMPN ---
Progress Note: A&P Assessment and Plan (1) Influenza A: Code(s): J10.1 - Influenza due to other identified influenza virus with other respiratory manifestations Status: Acute Assessment and Plan: placed in observation supportive care started on Tamiflu (2) Delirium: Code(s): R41.0 - Disorientation, unspecified Status: Acute Assessment and Plan: likely secondary to influenza continue to monitor cultures in progress 06/14/23: Improved (3) Hypertension: Code(s): I10 - Essential (primary) hypertension Status: Acute Assessment and Plan: resume home meds as needed (4) MYKE on CPAP: Code(s): G47.33 - Obstructive sleep apnea (adult) (pediatric) Status: Acute Assessment and Plan: continue CPAP (5) Morbid obesity: Code(s): E66.01 - Morbid (severe) obesity due to excess calories Status: Acute Assessment and Plan: lifestyle and diet modifications (6) Coronary artery disease: Code(s): I25.10 - Atherosclerotic heart disease of [place] coronary artery without angina pectoris Status: Acute Assessment and Plan: stable (7) Chronic back pain: Code(s): M54.9 - Dorsalgia, unspecified; G89.29 - Other chronic pain Status: Acute Assessment and Plan: status post pain pump Plan Acute and principal conditions 1. Acute metabolic encephalopathy 2. Influenza A infection, URI 3. Physical deconditioning PT/OT eval and Rx Incentive spirometry Osetamivir Up in chair; Ambulate Chronic and stable condition 1. Obesity, BMI 40 2. Hypertension. 3. CAD 4. BPH. 5. Dyslipidemia. 6. NIDDM. Miscellaneous care. Code status. Full Nutrition. Carb controlled Disposition. TBD Time Spent With Patient Time with patient: 25 - 35 minutes Subjective Date/time seen: 06/14/23 16:43 Interval history: Seen and examined; tired-looking. Not in painful or respiratory distress Review of Systems Review of Systems: generalized weakness, body aches and pains, poor appetite, poor per orally intake Constitutional: Constitutional: Reports body ache(s), Reports chills, Denies fatigue, Reports malaise, Reports poor appetite and Reports weakness Eyes: Eyes: Denies change in vision ENT: Denies dysphagia and Denies odynophagia Cardiovascular: Cardiovascular: Denies chest pain, Denies radiating jaw, neck or arm pain, Denies palpitations and Denies dyspnea Respiratory: Respiratory: Denies chest congestion, Denies cough, Denies excessive phlegm production and Denies dyspnea Gastrointestinal: Gastrointestinal: Denies abdominal pain, Denies dysphagia, Denies nausea, Denies odynophagia and Denies vomiting Genitourinary: Genitourinary: Denies dysuria Musculoskeletal: Musculoskeletal: Reports back pain, Reports myalgias and Reports muscle weakness Integumentary/Breasts: Skin/Breast: Denies rash Neurologic: Denies focal weakness, Denies Sensory deficit (Neuro) and Reports weakness Psychiatric: Psychiatric: Reports no additional psychiatric complaints and Reports as per HPI Endocrine: Endocrine: Denies cold intolerance, Denies fatigue, Denies flushing, Denies heat intolerance, Denies polyphagia, Denies polydipsia and Denies palpitations Hematologic/Lymphatic: Hematologic/Lymphatic: Reports no additional hematologic/lymphatic complaints and Reports as per HPI Allergic/Immunologic: Allergic/Immunologic: Reports no additional allergic/immunologic complaints and Reports as per HPI Exam Narrative: patient is laying in a stretcher Const: General: comfortable, no acute distress, well developed, alert, awake, ill appearing chronically, average body habitus and obese Nutritional Appearance: average body habitus and obese Orientation/consciousness: patient oriented x3 HENMT: Head: normal to inspection, normocephalic and atraumatic Ears: hearing grossly normal bilaterally Face/Nose/Sinus: normal facial
[2023-06-14 16:55] LABS: Glucose Point of Care 163 mg/dl (65-105)
[2023-06-14] MEDS: LACTATED RINGERS 1,500 ML 999 ML IV CONT (16:57)
[2023-06-14] MEDS: SODIUM CHLORIDE 0.9% IV 1,000 ML 100 ML IV CONT (20:45)
[2023-06-14 21:29] LABS: Glucose Point of Care 119 mg/dl (65-105)
[2023-06-15 01:52] LABS: Hemoglobin A1C 8.1 % (<5.7)
[2023-06-15 06:00] VITALS: BP 143/71; PULSE 72; RESP 20; TEMP 36.8; O2SAT 90
[2023-06-15 06:36] LABS: Basophils Percent Auto 0.2 % (0.2-1.2); Eosinophils Absolute Auto 0.1 K/mm3 (0-0.3); Eosinophils Percent Auto 1.2 % (0-4.4); Hematocrit 44.2 % (42.0-52.0); Hemoglobin 14.4 g/dL (14.0-18.0); Immature Granulocyte Absolute 0.01 K/mm3 (0.00-0.031); Immature Granulocyte Percent A 0.2 % (0-0.5); Lymphocytes Percent Auto 17.4 % (18.3-44.2); Mean Corpuscular HGB Conc 32.6 g/dl (32-36); Mean Corpuscular Hemoglobin 27.4 pg (26-34); Mean Platelet Volume 9.2 fl (7.4-10.4); Monocytes Absolute Auto 0.9 K/mm3 (0.1-0.6); Neutrophils Absolute Auto 3.8 K/mm3 (1.3-6.7); Platelet Count Result 242 k/mm3 (150-375); Red Blood Count 5.26 M/mm3 (4.6-6.20); Red Cell Distribution Width 13.5 % (11.5-14.5); White Blood Count 5.8 K/mm3 (4.5-10.0)
[2023-06-15 07:06] LABS: Alanine Aminotransferase 52 U/L (6-50); Albumin Level 3.5 g/dL (3.5-5.1); Alkaline Phosphatase 61 U/L (38-126); Anion Gap 6 mmol/L (8-16); Aspartate Amino Transferase 74 U/L (17-59); Bilirubin,Total 0.5 mg/dL (0.2-1.3); Blood Urea Nitrogen 11 mg/dL (9-20); Calcium 8.6 mg/dL (8.4-10.2); Carbon Dioxide 29 mmol/L (22-30); Chloride 104 mmol/L (98-107); Estimated CRCL calculation 126 ml/min; Estimated Glomerular Filt Rate > 60; Glucose 152 mg/dL (65-110); Potassium 3.1 mmol/L (3.4-5.0); Sodium 139 mmol/L (137-145)
[2023-06-15 08:00] LABS: Glucose Point of Care 148 mg/dl (65-105)
[2023-06-15] MEDS: carvediloL 12.5 MG TABLET PO ×2 (08:08→20:52)
[2023-06-15] MEDS: TAMSULOSIN HCL 0.4 MG CAPSULE PO (08:09)
[2023-06-15] MEDS: OSELTAMIVIR PHOSPHATE 75 MG CAPSULE PO ×2 (08:14→20:52)
[2023-06-15] MEDS: KETOROLAC 15 MG/ML VIAL (*BKC) IV PUSH ×3 (09:23→20:54)
[2023-06-15 11:23] LABS: Glucose Point of Care 171 mg/dl (65-105)
[2023-06-15 13:49] VITALS: BP 133/54; PULSE 62; RESP 18; TEMP 36.6; O2SAT 94
[2023-06-15] MEDS: SODIUM CHLORIDE 0.9% IV 1,000 ML 100 ML IV CONT (15:59)
[2023-06-15 16:18] LABS: Glucose Point of Care 129 mg/dl (65-105)
--- NOTE | 2023-06-15 16:33 | PM.IMPN ---
Progress Note: A&P Assessment and Plan (1) Influenza A: Code(s): J10.1 - Influenza due to other identified influenza virus with other respiratory manifestations Status: Acute Assessment and Plan: placed in observation supportive care started on Tamiflu (2) Delirium: Code(s): R41.0 - Disorientation, unspecified Status: Acute Assessment and Plan: likely secondary to influenza continue to monitor cultures in progress 06/14/23: Improved (3) Hypertension: Code(s): I10 - Essential (primary) hypertension Status: Acute Assessment and Plan: resume home meds as needed (4) MYKE on CPAP: Code(s): G47.33 - Obstructive sleep apnea (adult) (pediatric) Status: Acute Assessment and Plan: continue CPAP (5) Morbid obesity: Code(s): E66.01 - Morbid (severe) obesity due to excess calories Status: Acute Assessment and Plan: lifestyle and diet modifications (6) Coronary artery disease: Code(s): I25.10 - Atherosclerotic heart disease of [place] coronary artery without angina pectoris Status: Acute Assessment and Plan: stable (7) Chronic back pain: Code(s): M54.9 - Dorsalgia, unspecified; G89.29 - Other chronic pain Status: Acute Assessment and Plan: status post pain pump Plan Acute and principal conditions 1. Acute metabolic encephalopathy 2. Influenza A infection, URI 3. Physical deconditioning PT/OT eval and Rx Incentive spirometry Osetamivir Up in chair; Ambulate Chronic and stable condition 1. Obesity, BMI 40 2. Hypertension. 3. CAD 4. BPH. 5. Dyslipidemia. 6. NIDDM. Miscellaneous care. Code status. Full Nutrition. Carb controlled Disposition. TBD Time Spent With Patient Time with patient: 25 - 35 minutes Subjective Date/time seen: 06/15/23 16:33 Interval history: Seen and examined; tired-looking. Not in painful or respiratory distress Tired-looking; fatigued Slated for removal of spine stimulator today at an outpatient clinic. Review of Systems Review of Systems: generalized weakness, body aches and pains, poor appetite, poor per orally intake Constitutional: Constitutional: Reports body ache(s), Reports chills, Denies fatigue, Reports malaise, Reports poor appetite and Reports weakness Eyes: Eyes: Denies change in vision ENT: Denies dysphagia and Denies odynophagia Cardiovascular: Cardiovascular: Denies chest pain, Denies radiating jaw, neck or arm pain, Denies palpitations and Denies dyspnea Respiratory: Respiratory: Denies chest congestion, Denies cough, Denies excessive phlegm production and Denies dyspnea Gastrointestinal: Gastrointestinal: Denies abdominal pain, Denies dysphagia, Denies nausea, Denies odynophagia and Denies vomiting Genitourinary: Genitourinary: Denies dysuria Musculoskeletal: Musculoskeletal: Reports back pain, Reports myalgias and Reports muscle weakness Integumentary/Breasts: Skin/Breast: Denies rash Neurologic: Denies focal weakness, Denies Sensory deficit (Neuro) and Reports weakness Psychiatric: Psychiatric: Reports no additional psychiatric complaints and Reports as per HPI Endocrine: Endocrine: Denies cold intolerance, Denies fatigue, Denies flushing, Denies heat intolerance, Denies polyphagia, Denies polydipsia and Denies palpitations Hematologic/Lymphatic: Hematologic/Lymphatic: Reports no additional hematologic/lymphatic complaints and Reports as per HPI Allergic/Immunologic: Allergic/Immunologic: Reports no additional allergic/immunologic complaints and Reports as per HPI Exam Narrative: patient is laying in a stretcher Const: General: comfortable, no acute distress, well developed, alert, awake, ill appearing chronically, average body habitus and obese Nutritional Appearance: average body habitus and obese Orientation/consciousness: patient oriented x3 HENMT: Head: normal to inspection, normoce
[2023-06-15 20:52] VITALS: PULSE 67
[2023-06-15] MEDS: lisinopriL 10 MG TABLET PO (20:54)
[2023-06-15] MEDS: INSULIN GLARGINE (*BKC) 100 UNITS/ML 25 UNITS SUB-Q (20:59)
[2023-06-15 21:16] LABS: Glucose Point of Care 138 mg/dl (65-105)
[2023-06-15 21:54] VITALS: BP 162/45; PULSE 67; RESP 18; TEMP 36.5; O2SAT 91
[2023-06-16] MEDS: SODIUM CHLORIDE 0.9% IV 1,000 ML 100 ML IV CONT ×2 (01:59→12:30)
[2023-06-16 06:00] VITALS: BP 159/56; PULSE 79; RESP 19; TEMP 36.1; O2SAT 91
[2023-06-16 08:10] LABS: Glucose Point of Care 156 mg/dl (65-105)
[2023-06-16 10:03] LABS: Basophils Percent Auto 0.2 % (0.2-1.2); Eosinophils Percent Auto 0.2 % (0-4.4); Hematocrit 43.5 % (42.0-52.0); Immature Granulocyte Absolute 0.03 K/mm3 (0.00-0.031); Immature Granulocyte Percent A 0.2 % (0-0.5); Lymphocytes Percent Auto 7.4 % (18.3-44.2); Mean Corpuscular HGB Conc 32.2 g/dl (32-36); Mean Corpuscular Hemoglobin 27.3 pg (26-34); Mean Corpuscular Volume 84.8 fl (80-100); Mean Platelet Volume 8.9 fl (7.4-10.4); Monocytes Absolute Auto 0.8 K/mm3 (0.1-0.6); Monocytes Percent Auto 6.4 % (2.6-8.5); Neutrophils Absolute Auto 10.5 K/mm3 (1.3-6.7); Neutrophils Percent Auto 85.6 % (45.5-73.1); Platelet Count Result 239 k/mm3 (150-375); Red Blood Count 5.13 M/mm3 (4.6-6.20); Red Cell Distribution Width 13.5 % (11.5-14.5); White Blood Count 12.2 K/mm3 (4.5-10.0)
[2023-06-16 10:14] LABS: Alanine Aminotransferase 47 U/L (6-50); Albumin Level 3.9 g/dL (3.5-5.1); Alkaline Phosphatase 60 U/L (38-126); Anion Gap 7 mmol/L (8-16); Aspartate Amino Transferase 49 U/L (17-59); Bilirubin,Total 0.5 mg/dL (0.2-1.3); Blood Urea Nitrogen 8 mg/dL (9-20); Calcium 8.6 mg/dL (8.4-10.2); Carbon Dioxide 29 mmol/L (22-30); Chloride 103 mmol/L (98-107); Estimated CRCL calculation 126 ml/min; Estimated Glomerular Filt Rate > 60; Glucose 218 mg/dL (65-110); Potassium 3.6 mmol/L (3.4-5.0); Sodium 139 mmol/L (137-145)
[2023-06-16] MEDS: OSELTAMIVIR PHOSPHATE 75 MG CAPSULE PO (10:26)
[2023-06-16] MEDS: TAMSULOSIN HCL 0.4 MG CAPSULE PO (10:26)
[2023-06-16] MEDS: carvediloL 12.5 MG TABLET PO (10:26)
[2023-06-16 10:27] VITALS: BP 164/60; PULSE 70; RESP 14; O2SAT 94
[2023-06-16 11:21] LABS: Glucose Point of Care 179 mg/dl (65-105)
[2023-06-16 13:47] LABS: Procalcitonin 0.1 ng/mL
[2023-06-16 14:00] VITALS: BP 135/62; PULSE 66; RESP 18; TEMP 36.5; O2SAT 94
--- NOTE | 2023-06-16 15:17 | PM.DS ---
DS: Admitting Diagnosis Discharge Date 06/16/23 Admitting Diagnosis Acute and principal conditions 1. Acute metabolic encephalopathy 2. Influenza A infection, URI 3. Physical deconditioning DS: Discharge Diagnosis Discharge Diagnosis (1) Influenza A: Code(s): J10.1 - Influenza due to other identified influenza virus with other respiratory manifestations Status: Acute Assessment and Plan: placed in observation supportive care started on Tamiflu (2) Delirium: Code(s): R41.0 - Disorientation, unspecified Status: Acute Assessment and Plan: likely secondary to influenza continue to monitor cultures in progress 06/14/23: Improved (3) Hypertension: Code(s): I10 - Essential (primary) hypertension Status: Acute Assessment and Plan: resume home meds as needed (4) MYKE on CPAP: Code(s): G47.33 - Obstructive sleep apnea (adult) (pediatric) Status: Acute Assessment and Plan: continue CPAP (5) Morbid obesity: Code(s): E66.01 - Morbid (severe) obesity due to excess calories Status: Acute Assessment and Plan: lifestyle and diet modifications (6) Coronary artery disease: Code(s): I25.10 - Atherosclerotic heart disease of [place] coronary artery without angina pectoris Status: Acute Assessment and Plan: stable (7) Chronic back pain: Code(s): M54.9 - Dorsalgia, unspecified; G89.29 - Other chronic pain Status: Acute Assessment and Plan: status post pain pump Plan Acute and principal conditions 1. Acute metabolic encephalopathy 2. Influenza A infection, URI 3. Physical deconditioning PT/OT eval and Rx Incentive spirometry Osetamivir Up in chair; Ambulate Chronic and stable condition 1. Obesity, BMI 40 2. Hypertension. 3. CAD 4. BPH. 5. Dyslipidemia. 6. NIDDM. Miscellaneous care. Code status. Full Nutrition. Carb controlled Disposition. TBD DS: Summary Hospital Course Reason for hospitalization: 1. Influenza A infection, URI 2. Physical deconditioning 3. Acute metabolic encephalopathy Hospital Course: Chief Complaint: Generalized weakness Narrative: ?This is a 68-year-old male with past medical history significant for chronic back pain, patient is status post pain pump implantation, type diabetes mellitus, hypertension, obesity, benign prostatic hyperplasia.? Patient presents to the emergency room due to generalized weakness, lethargy body aches and pains chills poor appetite poor per orally intake.? Patient was found to be positive for influenza.? Patient has been placed in observation for further evaluation management and treatment. Acute and principal conditions 1. Acute metabolic encephalopathy 2. Influenza A infection, URI 3. Physical deconditioning PT/OT eval and Rx Incentive spirometry Osetamivir Up in chair; Ambulate Chronic and stable condition 1. Obesity, BMI 40 2. Hypertension. 3. CAD 4. BPH. 5. Dyslipidemia. 6. NIDDM. Miscellaneous care. Code status.?Full Nutrition.?Carb controlled Disposition.?TBD Significant findings: Patient was found to be positive for influenza A.? Portable chest x-ray: Probable mild central congestive change. Non-contrast Head CT: No significant abnormality seen. CT of the Abdomen and Pelvis: No significant abnormalities seen. Treatment rendered: Anti-pyretics, Oseltamivir, IVFs Procedures performed: None Disposition: Home Status at Discharge Functional status at discharge: independent ambulation Time Spent with Patient Time attestation: Total time spent providing and/or coordinating discharge services: Time spent: Greater than 30 minutes Exam Narrative: patient is laying in a stretcher Const: General: comfortable, no acute distress, well developed, alert, awake, ill appearing chronically, average body habitus and obese Nutritional Appearance: average body habitus and obese Orientation/consci
== END 2023-06-16 15:40 | disposition home or self-care (01) ==
LOC: ANHED 23:11 → ANH3MEDSUR 06-14 00:27
PROVIDERS: Admitting Provider Internal Medicine; Emergency Provider Emergency Medicine; Visit Provider Internal Medicine
DX: J10.1 Influenza due to other identified influenza virus with other respiratory manifestations (principal); G93.41 Metabolic encephalopathy; I10 Essential (primary) hypertension; G47.33 Obstructive sleep apnea (adult) (pediatric); Z99.89 Dependence on other enabling machines and devices; E66.01 Morbid (severe) obesity due to excess calories; Z68.41 Body mass index [BMI] 40.0-44.9, adult; I25.10 Atherosclerotic heart disease of native coronary artery without angina pectoris; R94.31 Abnormal electrocardiogram [ECG] [EKG]; G89.29 Other chronic pain; M54.9 Dorsalgia, unspecified; Z96.82 Presence of neurostimulator; Z20.822 Contact with and (suspected) exposure to COVID-19; E11.9 Type 2 diabetes mellitus without complications; I25.2 Old myocardial infarction; E78.5 Hyperlipidemia, unspecified; N40.0 Benign prostatic hyperplasia without lower urinary tract symptoms; Z79.84 Long term (current) use of oral hypoglycemic drugs; Z79.85 Long-term (current) use of injectable non-insulin antidiabetic drugs; Z79.899 Other long term (current) drug therapy; Z82.49 Family history of ischemic heart disease and other diseases of the circulatory system
CPT/HCPCS: 36415; 70450; 71045; 74177; 80053; 80307; 81001; 82948; 83036; 83605; 83735; 84145; 84443; 84484; 85025; 85610; 85730; 87040; 87637; 93005; 96360; 96361; 96374; 96376; 97116; 97161; 97165; 97530; 99285; A9270; G0378; J1815; J1885; J7030; J7120; Q9967